=== PATIENT | male | born 1945 | race Caucasian/White ===

== ENCOUNTER 2017-05-09 10:47 | Emergency (ER) | payer SELFPAY ==
[2017-05-09 10:53] VITALS: TEMP 97.7
--- NOTE | 2017-05-09 11:29 | C.PDOC ---
History Of Present Illness 71-YEAR-OLD MALE, PRESENTS TO THE EMERGENCY DEPARTMENT WITH COMPLAINTS OF NEW ONSET R FACIAL SWELL AND PAIN X 1 DAY. BELOW R JAW, INCR SWELL TODAY. NO FEVER, URI SX, SORE THROAT. S/P ADVIL @ 0900 EXAM NARD NONTOXIC HEENT THROAT CLEAR. +R SUBMAND/R UPPER NECK SWELL FIRM W LOCAL TEND. NO ERYTHEMA. NOSE CLEAR, NO STRIDOR DROOLING REMAINDE RNEG Time Seen by Provider: 05/09/17 11:15 Chief Complaint (Nursing): ENT Problem History Per: Patient History/Exam Limitations: None Past Medical History Reviewed: Historical Data, Nursing Documentation, Vital Signs Vital Signs: Last Vital Signs Temp 97.7 F 05/09/17 10:51 Pulse 71 05/09/17 10:51 Resp 18 05/09/17 10:51 BP 126/73 05/09/17 10:51 Pulse Ox 99 05/09/17 11:37 - Medical History PMH: Gastritis Denies: Chronic Kidney Disease Family History: States: No Known Family Hx - Social History Hx Tobacco Use: Yes Hx Alcohol Use: Yes (admits to occasional drinking but has been drinking for the past 3 days) Hx Substance Use: Yes (has been using cocaine for three days) - Immunization History Hx Tetanus Toxoid Vaccination: No Hx Influenza Vaccination: No Hx Pneumococcal Vaccination: No Review Of Systems Constitutional: Negative for: Fever, Chills ENT: Negative for: Ear Pain, Nose Congestion, Throat Pain, Throat Swelling Respiratory: Negative for: Shortness of Breath Gastrointestinal: Negative for: Vomiting Musculoskeletal: Positive for: Other (Swelling to R Jaw). Negative for: Neck Pain, Back Pain Skin: Negative for: Rash Neurological: Negative for: Weakness, Numbness, Headache, Dizziness Physical Exam - Physical Exam Appears: Non-toxic, No Acute Distress Skin: Normal Color, Warm, Dry, No Rash Head: Normacephalic Nose: Normal, No Flaring, No Discharge Oral Mucosa: Moist Lips: Normal Appearing Throat: No Erythema, No Exudate, No Drooling Neck: Normal ROM, Other (. +R SUBMAND/R UPPER NECK SWELL FIRM W LOCAL TEND.) Chest: Symmetrical Cardiovascular: Rhythm Regular, No Murmur Respiratory: Normal Breath Sounds, No Decreased Breath Sounds, No Accessory Muscle Use, No Stridor Extremity: Normal ROM, No Deformity, No Swelling Neurological/Psych: Oriented x3, Normal Speech ED Course And Treatment - Laboratory Results Result Diagrams: 05/09/17 11:57 05/09/17 11:57 O2 Sat by Pulse Oximetry: 99 (RA) Pulse Ox Interpretation: Normal Reevaluation Time: 13:54 Reassessment Condition: Improved Disposition Counseled Patient/Family Regarding: Studies Performed, Diagnosis, Need For Followup, Rx Given - Disposition Referrals: [facility] [Outside] [facility] [Outside] Disposition: HOME/ ROUTINE Disposition Time: 13:55 Condition: GOOD Additional Instructions: USE LEMON CANDY TO ENCOURAGE SALIVA PRODUCTION, STONE EXIT Prescriptions: Amoxicillin/Clavulanate [Augmentin 875 MG-125 MG] 1 tab PO BID #14 tab Instructions: Salivary Gland Infection Forms: [facility] (Persian) Print Language: ERITREAN - Clinical Impression Clinical Impression: Sialadenitis - Scribe Statement The provider has reviewed the documentation as recorded by the Scribe (Tasneem Fitch) All medical record entries made by the Scribe were at my direction and personally dictated by me. I have reviewed the chart and agree that the record accurately reflects my personal performance of the history, physical exam, medical decision making, and the department course for this patient. I have also personally directed, reviewed, and agree with the discharge instructions and disposition.
[2017-05-09 12:04] LABS: BASO % 0.6 % (0.0-2.0); EOS # 0.1 K/uL (0.0-0.7); EOS % 0.8 % (0.0-4.0); HEMOGLOBIN 14.1 g/dL (12.0-18.0); LYMPH # 1.1 K/uL (1.0-4.3); LYMPH % 17.6 % (20.0-40.0); MEAN CELL VOLUME 93.9 fL (80.0-94.0); MEAN CORPUSCULAR HEMOGLOBIN 33.4 pg (27.0-31.0); MEAN CORPUSCULAR HGB CONC 35.6 g/dL (33.0-37.0); MEAN PLATELET VOLUME 7.5 fL (7.2-11.7); MONO # 0.8 K/uL (0.0-0.8); MONO % 12.7 % (0.0-10.0); NEUT # 4.4 K/uL (1.8-7.0); NEUT % 68.3 % (50.0-75.0); RBC 4.22 Mil/uL (4.40-5.90); RED CELL DISTRIBUTION WIDTH 12.6 % (11.5-14.5); WHITE BLOOD COUNT 6.5 K/uL (4.8-10.8)
[2017-05-09 12:18] LABS: BLOOD UREA NITROGEN 13 mg/dL (9-20); CALCIUM 9.7 mg/dl (8.6-10.4); GFR AFRICAN-AMERICAN > 60; GFR NON-AFRICAN AMERICAN > 60
[2017-05-09] MEDS ORDERED: Iodixanol 320 MG/ML 100 ML BOTTLE IV ONE (12:50)
--- NOTE | 2017-05-09 13:43 | CT ---
PROCEDURE: CT NECK WITH CONTRAST HISTORY: R SUBMANDIBULAR/NECK SWELL COMPARISON: None TECHNIQUE: CT of the neck with intravenous contrast. Coronal and sagittal reformats generated. Intravenous contrast dose: 100 mL Visipaque Radiation dose: DLP 438.72 mGy-cm This CT exam was performed using one or more of the following dose reduction techniques: Automated exposure control, adjustment of the mA and/or kV according to patient size, and/or use of iterative reconstruction technique. FINDINGS: NASOPHARYNX: Within normal limits. SUPRAHYOID NECK: There is enlargement of bilateral palatine tonsils. There is no mass or abnormal enhancement in the oropharynx, oral cavity, parapharyngeal space and retropharyngeal space. INFRAHYOID NECK: There is no mass or abnormal enhancement in the larynx, hypopharynx, and supraglottic space. Vocal cords intact. MASS: None. GLANDS: There is asymmetric enlargement of the right submandibular gland with mild intraglandular edema and surrounding fat stranding and inflammatory fluid. There is also mild edema in the right parapharyngeal space. There is also mild facial soft tissue swelling and subcutaneous edema with thickening of the right platysma. Parotid and left submandibular glands are normal in size with homogeneous enhancement. The thyroid gland is enlarged with apparent low-attenuation nodules. LYMPH NODES: There is asymmetric enlargement of the right submandibular lymph nodes. CERVICAL SPINE: No fracture or focal lesion. Multilevel degenerative changes in the lower cervical spine with degenerative anterior listhesis of C4 on C5. VASCULAR STRUCTURES: There is normal intravascular enhancement. OTHER FINDINGS: None. IMPRESSION: 1. Findings are most compatible with right submandibular sialoadenitis and reactive enlargement of the submandibular lymph nodes with mild overlying facial cellulitis. 2. Bilateral tonsillar enlargement. 3. Enlarged multinodular thyroid gland. A dedicated thyroid ultrasound on a nonemergent basis is recommended for further evaluation
[2017-05-09] MEDS ORDERED: Amoxicillin-Clav 875-125 mg Tab PO STA (13:47)
[2017-05-09] MEDS ORDERED: Amoxicillin-Clav 875-125 mg Tab PO ONE (13:52)
[2017-05-09 14:03] VITALS: BP 127/74; PULSE 61; RESP 20; O2SAT 98
== END 2017-05-09 14:12 | disposition home or self-care (01) ==
LOC: C.ER 10:47
DX: K11.20 Sialoadenitis, unspecified (principal); Z72.0 Tobacco use
CPT/HCPCS: 70491; 80048; 85025; 99284; Q9967